=== PATIENT | female | born 1950 | race Caucasian/White ===

== ENCOUNTER 2020-12-28 12:27 | Emergency (ER) | payer MEDICARE ==
[~2020-12-28] VITALS: Ht 175.3 cm; Wt 84.1 kg
[2020-12-28 12:31] VITALS: BP 122/74
== END 2020-12-28 13:07 | disposition home or self-care (01) ==
LOC: ED 13:00
DX: L03.116 Cellulitis of left lower limb (principal); R21 Rash and other nonspecific skin eruption
CPT/HCPCS: 99283